=== PATIENT | male | born 1960 | race Caucasian/White ===

== ENCOUNTER 2021-03-08 13:51 | Emergency (ER) | payer BC, OTHER ==
[~2021-03-08] VITALS: Ht 190.5 cm; Wt 142.9 kg
[2021-03-08] MEDS ORDERED: SOTROVIMAB 500 MG in SODIUM CHLORIDE 0.9% 100 ML IV ONE (15:30)
[2021-03-08 16:55] VITALS: BP 120/88
== END 2021-03-08 16:57 | disposition home or self-care (01) ==
LOC: FSED 14:11
DX: U07.1 COVID-19 (principal); R05.9 Cough, unspecified; I10 Essential (primary) hypertension; E78.5 Hyperlipidemia, unspecified; Z85.528 Personal history of other malignant neoplasm of kidney
CPT/HCPCS: 99283; J7050; U0002